=== PATIENT | male | born 2000 | race American Indian/Alaskan Native ===

== ENCOUNTER 2022-12-04 20:07 | Emergency (ER) | payer MEDICAID, SELFPAY ==
--- NOTE | ~2022-12-04 | US_ITS ---
EXAMINATION: US SCROTUM CLINICAL INFORMATION: Scrotal pain. COMPARISON: None available. TECHNIQUE: A sonogram of the scrotum was performed assessing marcano-scale appearance and color Doppler flow. Spectral Doppler analysis of the arterial and venous flow were performed in the testes bilaterally. FINDINGS: RIGHT: Right testicle measures 3.8 x 1.7 x 2.9 cm, volume 9.8 mL. No focal testicular parenchymal lesions are visualized. Spectral Doppler analysis of the arterial and venous flow is normal in the right testis. Right epididymal head is normal in size. No right hydrocele or varicocele is seen. Right epididymal Doppler flow is normal. LEFT: Left testicle measures 3.9 x 1.5 x 2.4 cm, volume 7.4 mL. No focal testicular parenchymal lesions are visualized. Spectral Doppler analysis of the arterial and venous flow is normal in the left testis. Left epididymal head is normal in size. No left hydrocele or varicocele is seen. Left epididymal Doppler flow is normal. US/US scrotum IMPRESSION: Normal ultrasound scrotum.
--- NOTE | ~2022-12-04 | CT_ITS ---
EXAMINATION: CT ABDOMEN AND PELVIS WITHOUT CONTRAST CLINICAL INFORMATION: Right lower quadrant pain COMPARISON: None available. TECHNIQUE: Multidetector volumetric imaging was performed from the superior aspect of the liver through the pubic symphysis. Sagittal and coronal reformatted images were obtained on the technologist's workstation. This CT examination was performed using dose optimization techniques as appropriate, variously including the following: *Automated exposure control *Adjustment of mA and/or kV according to patient size (this includes techniques or standardized protocols for targeted exams where dose is matched to indication/reason for exam; i.e. extremities or head) *Use of iterative reconstruction technique DLP: 334 mGy-cm FINDINGS: LUNG BASES: The visualized lung bases are unremarkable. LIVER, GALLBLADDER, AND BILIARY TREE: The liver is normal in size, shape, and attenuation. No focal hepatic lesion or biliary ductal dilatation is present. The gallbladder is contracted with no evidence of radiopaque gallstones, gallbladder wall thickening, or obvious pericholecystic inflammatory changes. PANCREAS: Unremarkable. SPLEEN: Unremarkable. ADRENAL GLANDS: Unremarkable. KIDNEYS AND URETERS: The kidneys are normal in size, shape, and attenuation. No hydronephrosis, hydroureter, or calculi seen. No perinephric stranding. BLADDER: Unremarkable. GASTROINTESTINAL TRACT: The stomach is unremarkable. Normal caliber small bowel. There is no obstruction. Normal appendix. No colonic wall thickening or inflammatory change. No free air or free fluid. ABDOMINAL WALL: No significant hernia is appreciated. LYMPH NODES: Normal. VASCULAR: Unremarkable. PELVIC VISCERA: The prostate and seminal vesicles are unremarkable. OSSEOUS STRUCTURES: No acute or suspicious osseous abnormality. CT/CT abdomen pelvis wo IV con IMPRESSION: No acute findings of the abdomen or pelvis. No inflammatory changes. Normal appendix. Fleischner guidelines were followed.
--- NOTE | ~2022-12-04 | US_ITS ---
EXAMINATION: US SCROTUM CLINICAL INFORMATION: Scrotal pain. COMPARISON: None available. TECHNIQUE: A sonogram of the scrotum was performed assessing marcano-scale appearance and color Doppler flow. Spectral Doppler analysis of the arterial and venous flow were performed in the testes bilaterally. FINDINGS: RIGHT: Right testicle measures 3.8 x 1.7 x 2.9 cm, volume 9.8 mL. No focal testicular parenchymal lesions are visualized. Spectral Doppler analysis of the arterial and venous flow is normal in the right testis. Right epididymal head is normal in size. No right hydrocele or varicocele is seen. Right epididymal Doppler flow is normal. LEFT: Left testicle measures 3.9 x 1.5 x 2.4 cm, volume 7.4 mL. No focal testicular parenchymal lesions are visualized. Spectral Doppler analysis of the arterial and venous flow is normal in the left testis. Left epididymal head is normal in size. No left hydrocele or varicocele is seen. Left epididymal Doppler flow is normal. US/US scrotum doppler IMPRESSION: Normal ultrasound scrotum.
[2022-12-04 20:44] VITALS: BP 160/76; PULSE 71; RESP 16; TEMP 37.6; O2SAT 100; BMI 21.2
--- NOTE | 2022-12-04 20:48 | ED_ITS ---
HPI - Male Genitourinary General Chief complaint: Urogenital-Male <Michael Vasquez - Last Filed: 12/04/22 20:49> Stated complaint: right scrotal and lower abd pain <Michael Vasquez - Last Filed: 12/04/22 20:49> Time Seen by Provider: 12/04/22 22:38 <Michael Vasquez - Last Filed: 12/04/22 20:49> Source: patient and family (Mother) <Shelby Damon MD - Last Filed: 12/05/22 00:19> Mode of arrival: ambulatory <Shelby Damon MD - Last Filed: 12/05/22 00:19> Limitations: no limitations <Shelby Damon MD - Last Filed: 12/05/22 00:19> History of Present Illness HPI Narrative: 22-year-old male came in for evaluation of right testicular pain for 1 day. Started as right testicular pain radiates to the right groin area for 1 day, pain started as severe 10/10 and was constant, now the pain is better about 2/10, no associated nausea, or vomiting. Denies any heavy lifting, patient is sexually not active for a year has no urethral discharge, no dysuria, no frequency urination. <Shelby Damon MD - Last Filed: 12/05/22 00:19> Related Data Home medications: Previous Rx's Medication Instructions Recorded ciprofloxacin HCl 250 mg tablet 250 mg PO BID #14 tabs 12/04/22 (Cipro) <Michael Vasquez - Last Filed: 12/04/22 20:49> Allergies/Adverse reactions: Allergies Allergy/AdvReac Type Severity Reaction Status Date / Time No Known Allergies Allergy Verified 12/04/22 20:43 <Michael Vasquez - Last Filed: 12/04/22 20:49> Review of Systems Review of Systems: All other systems are reviewed and are negative Constitutional: Reports as per HPI and Reports no additional constitutional complaints Eyes: Reports as per HPI and Reports no additional eye complaints Reports system reviewed and no additional complaints, except as documented Cardiovascular: Reports as per HPI and Reports no additional cardiovascular complaints Respiratory: Reports as per HPI and Reports no additional respiratory complaints Gastrointestinal: Reports as per HPI and Reports no additional gastrointestinal complaints Genitourinary: Reports no additional female genitourinary complaints Musculoskeletal: Reports no additional musculoskeletal complaints Skin/Breast: Reports system reviewed and no additional complaints, except as docu Psychiatric: Reports no additional psychiatric complaints Endocrine: Reports no additional endocrine complaints Hematologic/Lymphatic: Reports no additional hematologic/lymphatic complaints Allergic/Immunologic: Reports no additional allergic/immunologic complaints Reports system reviewed and no additional complaints, except as documented and Reports Abnormal speech present <Shelby Damon MD - Last Filed: 12/05/22 00:19> [facility] Past Medical History Attestation statement: The following information was validated with the patient. <Stefani Lanza NP - Last Filed: 12/04/22 22:59> Source: old records reviewed <Stefani Lanza NP - Last Filed: 12/04/22 22:59> old records reviewed <Shelby Damon MD - Last Filed: 12/05/22 00:19> Social History Social History: Social History Advance Directives: No Advance Directives Information Provided: Yes <Michael Vasquez - Last Filed: 12/04/22 20:49> Physical Exam Vital Signs: Vital Signs: Last Vital Signs Temp 99.7 F 12/04/22 20:44 Pulse 71 12/04/22 20:44 Resp 16 12/04/22 20:44 BP 160/76 H 12/04/22 20:44 Pulse Ox 100 12/04/22 20:44 O2 Del Method Room Air 12/04/22 20:44 BMI result Body Mass Index 21.2 <Michael Vasquez - Last Filed: 12/04/22 20:49> Vital Signs: Last Vital Signs Temp 99.7 F 12/04/22 20:44 Pulse 71 12/04/22 20:44 Resp 16 12/04/22 20:44 BP 160/76 H 12/04/22 20:44 Pulse Ox 100 12/04/22 20:44 O2 Del Method Room Air 12/04/22 20:44 BMI result Body Mass Index 21.2 <Stefani Lanza NP - Last Filed: 12/04/22 22:59> Vital Signs: Last Vital Signs Temp 99.7 F 12/04/22 20:44 Pulse 71 12/04/22 20:44 Resp 16 12/04/22 20:44 BP 160/76 H 12/04/22 20:44 Pulse Ox 100 12/04/22 20:44 O2 Del Method Room Air 12/04/22 20:44 BMI result Body Mass Index 21.2 Vital signs have been reviewed as appeared to be correct. Blood pressure normal. Heart rate normal. Respiration rate normal. Temperature normal. Oxygen saturation normal. <Shelby Damon MD - Last Filed: 12/05/22 00:19> Appearance: Alert. Oriented X3. No acute distress. Head: Normal external exam. Normocephalic. Atraumatic. No Pulliam signs noted. No raccoon eyes noted Eyes: PERRLA. EOMI. Conjunctiva and sclera normal. Eyelids normal. ENT: TM's Normal. Pharynx normal. Uvula midline. Moist mucous membranes. No trismus noted. No drooling noted. No muffled voice noted. Neck: Normal inspection. Neck supple. FROM. No adenopathy. Thyroid Normal. No meningeal signs. No neck mass noted. CVS: Normal heart rate and rhythm. Heart sound normal. No murmurs noted. Pulses normal throughout. Respiratory: No respiratory distress. Painless inspiration. Breath sounds normal. No wheezes/rales/rhonchi noted. Chest nontender. No accessory muscle usage noted or decreased air movement noted. Abdomen: Soft and nontender. Bowel sounds normal in all 4 quadrants. No distention noted. No organomegaly noted. No visible injury noted. exam: No testicular pain, no swelling, no redness in the scrotum, cremasteric reflex is intact, no palpable hernia or mass. Back: No CVA tenderness. Full range of motion noted. Skin: Skin warm and dry. Normal skin color. Normal skin turgor. No rashes/lesions/lacerations noted. Extremities: No lower extremity edema. Extremities exhibit normal range of motion. Extremities nontender. Neuro: Oriented X 3. Cranial nerve exam: II-XII are grossly intact No motor deficit. No sensory deficit. Reflexes normal. <Shelby Damon MD - Last Filed: 12/05/22 00:19> Course Course Course Narrative: RME- 22-year-old male presents for evaluation of right scrotal pain and right lower abdominal pain. Pain started yesterday. Pain is intermittent. Reports history of similar pain about 1 month ago. Denies any burning with urination, blood in the urine. Patient states that he is not sexually active. Plan for testicular ultrasound, labs, UA <Michael Vasquez - Last Filed: 12/04/22 20:49> RME- 22-year-old male presents for evaluation of right scrotal pain and right lower abdominal pain. Pain started yesterday. Pain is intermittent. Reports history of similar pain about 1 month ago. Denies any burning with urination, blood in the urine. Patient states that he is not sexually active. Plan for testicular ultrasound, labs, UA 22:40 <Stefani Lanza NP - Last Filed: 12/04/22 22:59> Reevaluation(s) Reevaluation #1: 22-year-old male with right testicular pain unremarkable ultrasound, has no risk for STD with no symptoms and not sexually active. Will start the patient on Cipro for 7 days treating epididymitis and ibuprofen every 6 hours if needed for pain and follow-up with . <Shelby Damon MD - Last Filed: 12/05/22 00:19> Medical Decision Making Differential Diagnosis Differential Diagnoses: The differential diagnosis associated with the presentation includes (UTI, testicular torsion, epididymitis, hernia, kidney stones, STDs.) <Shelby Damon MD - Last Filed: 12/05/22 00:19> Lab Data MDM Lab Attestation statement: I reviewed the patient's lab results. <Shelby Damon MD - Last Filed: 12/05/22 00:19> Result Diagrams: 12/04/22 20:54 12/04/22 20:54 <Michael Vasquez - Last Filed: 12/04/22 20:49> Labs: Lab Results 12/04/22 12/04/22 12/04/22 Range/Units 20:54 20:54 20:58 WBC 6.5 (4.8-10.8) X10*3/uL RBC 5.14 (4.60-5.80) X10*6/uL Hgb 15.2 (14.0-18.0) g/dl Hct 44.0 (42.0-52.0) % MCV 85.6 (80.0-98.0) fL MCH 29.6 (27.0-33.0) pg MCHC 34.5 (31.0-36.0) g/dl RDW 11.4 (11.0-16.0) % Plt Count 147 L (160-400) X10*3/uL MPV 11.0 (9.4-12.4) fL Immature Gran % (Auto) 0.5 H (0.0-0.4) % Neut % (Auto) 56.1 (45-73) % Lymph % (Auto) 32.6 (20-40) % [place] % (Auto) 9.0 (2-11) % Eos % (Auto) 1.5 (0-4) % Baso % (Auto) 0.3 (0-2) % Lymph # (Auto) 2.1 (1.2-4.9) X10*3/uL [place] # (Auto) 0.6 (0.1-1.2) X10*3/uL Eos # (Auto) 0.1 (0.0-0.4) X10*3/uL Baso # (Auto) 0.0 (0.0-0.2) X10*3/uL Abs Immat Gran (auto) 0.03 (0.00-0.03) X10*3/uL Absolute Neuts (auto) 3.7 (2.0-8.3) x10*3/uL Absolute Nucleated RBC 0.000 (0.0-0.012) X10*3/uL Nucleated RBC % (auto) 0.0 (0.0-0.2) /100WBC Sodium 141 (135-145) mmol/L Potassium 4.1 (3.3-5.1) mmol/L Chloride 105 (96-108) mmol/L Carbon Dioxide 27 (22-29) mmol/L Anion Gap 13 (12-20) BUN 16 (9-16) mg/dL Creatinine 0.87 (0.5-1.4) mg/dL Estim Creat Clear Calc 117.1 Estimated GFR > 60 Random Glucose 97 (60-115) mg/dL Calcium 9.3 (8.4-10.2) mg/dL Urine Color Yellow Urine Appearance Clear Urine pH 5.5 (5.0-9.0) Ur Specific [place] 1.010 (1.005-1.025) Urine Protein Negative (Neg-Trace) mg/dL Urine Glucose (UA) Negative (Negative) mg/dL Urine Ketones Negative (Negative) mg/dL Urine Blood Negative (Negative) Urine Nitrite Negative (Negative) Ur Leukocyte Esterase Negative (Negative) Urine RBC 0-2 (0-2) /HPF Urine WBC 0-5 (0-5) /HPF Ur Squamous Epith Cells 0-2 (0-2) /HPF Urine Bacteria None Seen (None Seen) Hyaline Casts 0-2 (0-2) /LPF <Michael Vasquez - Last Filed: 12/04/22 20:49> Lab Results 12/04/22 12/04/22 12/04/22 Range/Units 20:54 20:54 20:58 WBC 6.5 (4.8-10.8) X10*3/uL RBC 5.14 (4.60-5.80) X10*6/uL Hgb 15.2 (14.0-18.0) g/dl Hct 44.0 (42.0-52.0) % MCV 85.6 (80.0-98.0) fL MCH 29.6 (27.0-33.0) pg MCHC 34.5 (31.0-36.0) g/dl RDW 11.4 (11.0-16.0) % Plt Count 147 L (160-400) X10*3/uL MPV 11.0 (9.4-12.4) fL Immature Gran % (Auto) 0.5 H (0.0-0.4) % Neut % (Auto) 56.1 (45-73) % Lymph % (Auto) 32.6 (20-40) % [place] % (Auto) 9.0 (2-11) % Eos % (Auto) 1.5 (0-4) % Baso % (Auto) 0.3 (0-2) % Lymph # (Auto) 2.1 (1.2-4.9) X10*3/uL [place] # (Auto) 0.6 (0.1-1.2) X10*3/uL Eos # (Auto) 0.1 (0.0-0.4) X10*3/uL Baso # (Auto) 0.0 (0.0-0.2) X10*3/uL Abs Immat Gran (auto) 0.03 (0.00-0.03) X10*3/uL Absolute Neuts (auto) 3.7 (2.0-8.3) x10*3/uL Absolute Nucleated RBC 0.000 (0.0-0.012) X10*3/uL Nucleated RBC % (auto) 0.0 (0.0-0.2) /100WBC Sodium 141 (135-145) mmol/L Potassium 4.1 (3.3-5.1) mmol/L Chloride 105 (96-108) mmol/L Carbon Dioxide 27 (22-29) mmol/L Anion Gap 13 (12-20) BUN 16 (9-16) mg/dL Creatinine 0.87 (0.5-1.4) mg/dL Estim Creat Clear Calc 117.1 Estimated GFR > 60 Random Glucose 97 (60-115) mg/dL Calcium 9.3 (8.4-10.2) mg/dL Urine Color Yellow Urine Appearance Clear Urine pH 5.5 (5.0-9.0) Ur Specific [place] 1.010 (1.005-1.025) Urine Protein Negative (Neg-Trace) mg/dL Urine Glucose (UA) Negative (Negative) mg/dL Urine Ketones Negative (Negative) mg/dL Urine Blood Negative (Negative) Urine Nitrite Negative (Negative) Ur Leukocyte Esterase Negative (Negative) Urine RBC 0-2 (0-2) /HPF Urine WBC 0-5 (0-5) /HPF Ur Squamous Epith Cells 0-2 (0-2) /HPF Urine Bacteria None Seen (None Seen) Hyaline Casts 0-2 (0-2) /LPF <Stefani Lanza, [employer] - Last Filed: 12/04/22 22:59> Lab Results 12/04/22 12/04/22 12/04/22 Range/Units 20:54 20:54 20:58 WBC 6.5 (4.8-10.8) X10*3/uL RBC 5.14 (4.60-5.80) X10*6/uL Hgb 15.2 (14.0-18.0) g/dl Hct 44.0 (42.0-52.0) % MCV 85.6 (80.0-98.0) fL MCH 29.6 (27.0-33.0) pg MCHC 34.5 (31.0-36.0) g/dl RDW 11.4 (11.0-16.0) % Plt Count 147 L (160-400) X10*3/uL MPV 11.0 (9.4-12.4) fL Immature Gran % (Auto) 0.5 H (0.0-0.4) % Neut % (Auto) 56.1 (45-73) % Lymph % (Auto) 32.6 (20-40) % [place] % (Auto) 9.0 (2-11) % Eos % (Auto) 1.5 (0-4) % Baso % (Auto) 0.3 (0-2) % Lymph # (Auto) 2.1 (1.2-4.9) X10*3/uL [place] # (Auto) 0.6 (0.1-1.2) X10*3/uL Eos # (Auto) 0.1 (0.0-0.4) X10*3/uL Baso # (Auto) 0.0 (0.0-0.2) X10*3/uL Abs Immat Gran (auto) 0.03 (0.00-0.03) X10*3/uL Absolute Neuts (auto) 3.7 (2.0-8.3) x10*3/uL Absolute Nucleated RBC 0.000 (0.0-0.012) X10*3/uL Nucleated RBC % (auto) 0.0 (0.0-0.2) /100WBC Sodium 141 (135-145) mmol/L Potassium 4.1 (3.3-5.1) mmol/L Chloride 105 (96-108) mmol/L Carbon Dioxide 27 (22-29) mmol/L Anion Gap 13 (12-20) BUN 16 (9-16) mg/dL Creatinine 0.87 (0.5-1.4) mg/dL Estim Creat Clear Calc 117.1 Estimated GFR > 60 Random Glucose 97 (60-115) mg/dL Calcium 9.3 (8.4-10.2) mg/dL Urine Color Yellow Urine Appearance Clear Urine pH 5.5 (5.0-9.0) Ur Specific [place] 1.010 (1.005-1.025) Urine Protein Negative (Neg-Trace) mg/dL Urine Glucose (UA) Negative (Negative) mg/dL Urine Ketones Negative (Negative) mg/dL Urine Blood Negative (Negative) Urine Nitrite Negative (Negative) Ur Leukocyte Esterase Negative (Negative) Urine RBC 0-2 (0-2) /HPF Urine WBC 0-5 (0-5) /HPF Ur Squamous Epith Cells 0-2 (0-2) /HPF Urine Bacteria None Seen (None Seen) Hyaline Casts 0-2 (0-2) /LPF <Shelby Damon MD - Last Filed: 12/05/22 00:19> Independent Interpretation I performed an independent interpretation of an: Ultrasound (Scrotal ultrasound: No acute pathology.) and CT Scan (No acute intra abdominal pathology. With normal appendix) <Shelby Damon MD - Last Filed: 12/05/22 00:19> Radiology Impression Discussion of test interpretation with radiology: I have reviewed the radiologist's reading. <Shelby Damon MD - Last Filed: 12/05/22 00:19> Discharge Plan Discharge Clinical Impression: Right testicular pain <Michael Vasquez - Last Filed: 12/04/22 20:49> Patient Disposition: Home, Self-Care <Michael Vasquez - Last Filed: 12/04/22 20:49> Instructions: Testicle Pain (ED) <Michael Vasquez - Last Filed: 12/04/22 20:49> Prescriptions: New ciprofloxacin HCl [Cipro] 250 mg tablet 250 mg PO BID Qty: 14 0RF <Michael Vasquez - Last Filed: 12/04/22 20:49> Referrals: Fede Ponce MD [Physician] - <Michael Vasquez - Last Filed: 12/04/22 20:49> Stand Alone Forms: Work/School Release <Michael Vasquez - Last Filed: 12/04/22 20:49>
[2022-12-04 21:03] LABS: MANUAL DIFF FLAG NO
[2022-12-04 21:06] LABS: Basophils Percent Auto 0.3 % (0-2); Eosinophils Absolute Auto 0.1 X10*3/uL (0.0-0.4); Eosinophils Percent Auto 1.5 % (0-4); Hemoglobin 15.2 g/dl (14.0-18.0); Imm Gran Abs Auto 0.03 X10*3/uL (0.00-0.03); Imm Gran Pct Auto 0.5 % (0.0-0.4); Lymphocytes Absolute Auto 2.1 X10*3/uL (1.2-4.9); Lymphocytes Percent Auto 32.6 % (20-40); Mean Corpuscular HGB Conc 34.5 g/dl (31.0-36.0); Mean Corpuscular Hemoglobin 29.6 pg (27.0-33.0); Mean Corpuscular Volume 85.6 fL (80.0-98.0); Monocytes Absolute Auto 0.6 X10*3/uL (0.1-1.2); Neutrophils Absolute Auto 3.7 x10*3/uL (2.0-8.3); Neutrophils Percent Auto 56.1 % (45-73); Platelet Count 147 X10*3/uL (160-400); Red Blood Count 5.14 X10*6/uL (4.60-5.80); Red Cell Distribution Width 11.4 % (11.0-16.0); White Blood Count 6.5 X10*3/uL (4.8-10.8)
[2022-12-04 21:09] LABS: Appearance Urine Clear; Color Urine Yellow; Glucose Urine UA Negative (Negative); Leukocyte Esterase Urine Negative (Negative); Nitrite Urine Negative (Negative); PH 5.5 (5.0-9.0); Urine Blood Negative (Negative); Urine Ketones Negative (Negative); Urine Protein Negative (Neg-Trace)
[2022-12-04 21:11] LABS: Bacteria Urine None Seen (None Seen); Hyaline Casts Urine 0-2 /LPF (0-2); RBC Urine 0-2 /HPF (0-2); Squamous Epithelial Cell Urine 0-2 /HPF (0-2); WBC Urine 0-5 /HPF (0-5)
[2022-12-04 21:20] LABS: Anion Gap 13 (12-20); Blood Urea Nitrogen 16 mg/dL (9-16); Calcium 9.3 mg/dL (8.4-10.2); Carbon Dioxide 27 mmol/L (22-29); Chloride 105 mmol/L (96-108); Creatinine Clr Calc Pharmacy 117.1; Estimated Glomerular Filt Rate > 60; Glucose Random 97 mg/dL (60-115); Potassium 4.1 mmol/L (3.3-5.1); Sodium 141 mmol/L (135-145)
--- NOTE | 2022-12-05 00:58 | PC.NURSE ---
Assessed and discharge by provider, this Rn reviewed discharge instructions with pt. pt verbalized understanding.
== END 2022-12-05 00:59 | disposition home or self-care (01) ==
PROVIDERS: Physician Assistant; Emergency Provider Emergency Medicine
DX: N50.811 Right testicular pain (principal); R10.31 Right lower quadrant pain
CPT/HCPCS: 36415; 74176; 76870; 80048; 81001; 85025; 93975; 99282; 99284

== ENCOUNTER 2023-03-03 15:20 | Emergency (ER) | payer OTHER, MEDICAID, SELFPAY ==
--- NOTE | ~2023-03-03 | XR_ITS ---
EXAMINATION: XR CHEST CLINICAL INFORMATION: Preop COMPARISON: None available. TECHNIQUE: 2 views of the chest were obtained. FINDINGS: No significant abnormality is noted involving the heart, lungs, mediastinum, bony thorax or soft tissues. XR/XR chest 2V IMPRESSION: Unremarkable examination.
[2023-03-03 15:33] VITALS: BP 130/73; PULSE 80; RESP 22; TEMP 36.8; O2SAT 99; BMI 21.4
--- NOTE | 2023-03-03 15:37 | ECG_ITS ---
Test Reason : dyspena Blood Pressure : / mmHG Vent. Rate : 075 BPM Atrial Rate : 075 BPM P-R Int : 134 ms QRS Dur : 084 ms QT Int : 328 ms P-R-T Axes : 074 068 060 degrees QTc Int : 366 ms Normal sinus rhythm Normal ECG No previous ECGs available Referred By: Michael Vasquez Electronically Signed By:MARY JANE JOSE
--- NOTE | 2023-03-03 16:21 | MHC.EDTECH ---
patient ekg done and was read by provider ,blood drawn and sent to lab.
[2023-03-03 16:25] LABS: MANUAL DIFF FLAG NO
[2023-03-03 16:26] LABS: Basophils Percent Auto 0.3 % (0-2); Eosinophils Absolute Auto 0.1 X10*3/uL (0.0-0.4); Eosinophils Percent Auto 1.5 % (0-4); Hemoglobin 14.6 g/dl (14.0-18.0); Imm Gran Abs Auto 0.01 X10*3/uL (0.00-0.03); Imm Gran Pct Auto 0.2 % (0.0-0.4); Lymphocytes Absolute Auto 1.4 X10*3/uL (1.2-4.9); Lymphocytes Percent Auto 21.9 % (20-40); Mean Corpuscular Hemoglobin 29.9 pg (27.0-33.0); Mean Corpuscular Volume 87.9 fL (80.0-98.0); Mean Platelet Volume 11.4 fL (9.4-12.4); Monocytes Absolute Auto 0.7 X10*3/uL (0.1-1.2); Neutrophils Percent Auto 65.1 % (45-73); Platelet Count 148 X10*3/uL (160-400); Red Blood Count 4.89 X10*6/uL (4.60-5.80); Red Cell Distribution Width 11.8 % (11.0-16.0); White Blood Count 6.2 X10*3/uL (4.8-10.8)
[2023-03-03 16:45] LABS: Alanine Aminotransferase 13 U/L (0-40); Albumin Level 4.4 g/dL (3.5-5.0); Alkaline Phosphatase 89 U/L (39-117); Anion Gap 11 (12-20); Aspartate Amino Transferase 25 U/L (5-37); Bilirubin Total 0.5 mg/dL (0.0-1.0); Blood Urea Nitrogen 15 mg/dL (9-16); Calcium 9.5 mg/dL (8.4-10.2); Carbon Dioxide 23 mmol/L (22-29); Chloride 108 mmol/L (96-108); Creatinine Clr Calc Pharmacy 123.4; Estimated Glomerular Filt Rate > 60; Glucose Random 93 mg/dL (60-115); Lipase 11 U/L (8-78); Potassium 4.4 mmol/L (3.3-5.1); Sodium 138 mmol/L (135-145); Total Protein 7.7 g/dL (6.5-8.0)
[2023-03-03 16:49] LABS: Troponin-I High Sensitivity < 2.7 ng/L (<3.5-35.0)
--- NOTE | 2023-03-03 17:26 | ED.SOB ---
HPI - SOB/Dyspnea General Chief Complaint: Dyspnea Stated Complaint: SOB/Body aches Time Seen by Provider: 03/03/23 17:23 Source: patient Mode of arrival: ambulatory Limitations: no limitations History of Present Illness HPI Narrative: 22-year-old male who presents emergency department for evaluation of left-sided chest pain. The patient works as a selector in a warehouse. He states that yesterday evening, approximately 4 hours into a shift, he developed left-sided chest pain. Describes the pain is an intermittent squeezing sensation. He felt lightheaded and dizzy. He states that his tongue felt numb. He states that the pain came on gradually. The pain did radiate to his left arm. He states he has been having intermittent symptoms throughout the day today so he came to the emergency department for evaluation. He states he did feel warm but did not take his temperature, he denied chills. He states that he had a sore throat and a nonproductive cough. He states he had 1 episode of diarrhea. He denies any recent travel. He has not noticed any pain or swelling in his lower extremities. The pain does not radiate to his back. Related Data Previous Rx's Medication Instructions Recorded ciprofloxacin HCl 250 mg tablet 250 mg PO BID #14 tabs 12/04/22 (Cipro) Allergies Allergy/AdvReac Type Severity Reaction Status Date / Time No Known Allergies Allergy Verified 03/03/23 15:36 Review of Systems Review of Systems: Yes all other systems are reviewed and are negative [facility] Past Medical History [facility] Narrative: Social history: He does vape tobacco products. He denies alcohol use. He denies drug use. Social History Social History Alcohol intake: never Smoked in Last 30 Days: Yes Use of substances other than those prescribed or required for medical reasons: No Advance Directives: No Advance Directives Information Provided: No Physical Exam Vital Signs: Vital Signs: Last Vital Signs Temp 99.5 F 03/03/23 17:50 Pulse 70 03/03/23 17:50 Resp 22 H 03/03/23 15:33 BP 119/61 03/03/23 17:50 Pulse Ox 99 03/03/23 17:50 O2 Del Method Room Air 03/03/23 17:50 BMI result Body Mass Index 21.4 Const: General: cooperative and no acute distress Orientation/consciousness: oriented to person and oriented to place Limitations: no limitations HEENT: Head: Yes normal to inspection, Yes normocephalic and Yes atraumatic Ears: external ears normal General nose exam: Normal external nose present Face and sinus: Yes normal facial exam Mouth: Normal oral and palatal mucosa present Throat: Yes posterior oropharynx normal Eyes: General: appearance normal, both eyes and all related structures Pupils: Equal, round and reactive pupils present Neck: Neck: Yes normal visual inspection, Yes no lymphadenopathy, Yes trachea midline and Yes supple Chest: Other: Patient has [id number] left-sided chest wall tenderness Resp: Other: Moderate left chest wall tenderness Effort & Inspection: normal respiratory effort and able to speak in complete sentences Auscultation: clear to auscultation bilaterally Cardio: Rate: regular rate Rhythm: regular rhythm Heart sounds: S1 normal heart sound present, S2 normal heart sound present and no murmurs GI: Inspection: Yes normal to inspection Palpation (GI): Soft to palpation, nontender and no guarding Auscultation: normal bowel sounds : General: Yes no CVA tenderness Back/Spine/Pelvis: Back: no CVA tenderness Skin: General skin exam: no rashes or lesions noted Neuro: General: oriented to person and oriented to place Cranial nerves: Yes CN's II-XII intact bilaterally and Yes Equal, round and reactive pupils present Cognition (Neuro): normal cognition Motor exam (neuro): 5/5 motor strength present throughout Extrem: General: Yes normal to inspection Psych: Appearance: grossly normal Speech and movement: Normal speech and movement present Affect: normal affect Attitude: cooperative Thought process: Normal thought process present Medications Administered Discontinued Medications Generic Name Dose Route Start Last Admin Trade Name Juliusq PRN Reason Stop Dose Admin Ibuprofen 400 mg 03/03/23 17:47 03/03/23 18:06 Ibuprofen 400 Mg Tablet PO 03/03/23 17:48 400 mg ONCE ONE Administration Medical Decision Making Medical Decision Making [facility] Narrative: 22-year-old male who presents emergency department for evaluation of left sided chest pain with left arm pain and associated lightheadedness, dizziness, 1 episode of diarrhea and tongue numbness. The chest pain came on gradually and started approximately 4 hours after the patient was working in a warehouse. Patient has had intermittent episodes since onset. Patient's vital signs were normal. Physical examination did reveal left-sided chest wall tenderness otherwise was unremarkable. The patient's laboratory evaluation was unremarkable 12 EKG was normal. Chest x-ray was unremarkable. Patient's presentation is consistent with musculoskeletal left-sided chest wall pain with hyperventilation syndrome. Patient was advised to take ibuprofen 400 mg 3 times a day for the next 3-4 days. He was given a work note He was given printed and verbal instructions and discharged home Differential Diagnosis Differential Diagnoses: The differential diagnosis associated with the presentation includes Differential diagnosis includes was not limited to myocardial infarction, myocardial ischemia, chest wall pain, Lab Data MDM Lab Attestation statement: I reviewed the patient's lab results. My interpretation of patient's laboratory evaluation is as follows: Normal CBC and CMP. High sensitive troponin I was below detectable limits. 03/03/23 16:18 03/03/23 16:19 Labs: Lab Results 03/03/23 03/03/23 03/03/23 Range/Units 16:18 16:18 16:19 WBC 6.2 (4.8-10.8) X10*3/uL RBC 4.89 (4.60-5.80) X10*6/uL Hgb 14.6 (14.0-18.0) g/dl Hct 43.0 (42.0-52.0) % MCV 87.9 (80.0-98.0) fL MCH 29.9 (27.0-33.0) pg MCHC 34.0 (31.0-36.0) g/dl RDW 11.8 (11.0-16.0) % Plt Count 148 L (160-400) X10*3/uL MPV 11.4 (9.4-12.4) fL Immature Gran % (Auto) 0.2 (0.0-0.4) % Neut % (Auto) 65.1 (45-73) % Lymph % (Auto) 21.9 (20-40) % [place] % (Auto) 11.0 (2-11) % Eos % (Auto) 1.5 (0-4) % Baso % (Auto) 0.3 (0-2) % Lymph # (Auto) 1.4 (1.2-4.9) X10*3/uL [place] # (Auto) 0.7 (0.1-1.2) X10*3/uL Eos # (Auto) 0.1 (0.0-0.4) X10*3/uL Baso # (Auto) 0.0 (0.0-0.2) X10*3/uL Abs Immat Gran (auto) 0.01 (0.00-0.03) X10*3/uL Absolute Neuts (auto) 4.0 (2.0-8.3) x10*3/uL Absolute Nucleated RBC 0.000 (0.0-0.012) X10*3/uL Nucleated RBC % (auto) 0.0 (0.0-0.2) /100WBC Sodium 138 (135-145) mmol/L Potassium 4.4 (3.3-5.1) mmol/L Chloride 108 (96-108) mmol/L Carbon Dioxide 23 (22-29) mmol/L Anion Gap 11 L (12-20) BUN 15 (9-16) mg/dL Creatinine 0.83 (0.5-1.4) mg/dL Estim Creat Clear Calc 123.4 Estimated GFR > 60 Random Glucose 93 (60-115) mg/dL Calcium 9.5 (8.4-10.2) mg/dL Total Bilirubin 0.5 (0.0-1.0) mg/dL AST 25 (5-37) U/L ALT 13 (0-40) U/L Alkaline Phosphatase 89 (39-117) U/L Troponin I High Sens < 2.7 (<3.5-35.0) ng/L Total Protein 7.7 (6.5-8.0) g/dL Albumin 4.4 (3.5-5.0) g/dL Lipase 11 (8-78) U/L Independent Interpretation I performed an independent interpretation of an: EKG and Plain X-Ray Interpretation: My independent interpretation the patient's 12 EKG is as follows: Normal sinus rhythm rate of 75, normal OK interval, QRS duration QTC interval, no ST segment elevation, no ST segment depression, no T-wave abnormalities, no PACs, no PVCs, no previous EKG for comparison, this is a normal EKG. Radiology Impression Discussion of test interpretation with radiology: I have reviewed the radiologist's reading. Radiologist Impression: XR chest 2V IMPRESSION: Unremarkable examination. Dictated By:Genia Mccormack MD Discharge Plan Discharge Clinical Impression: Acute chest wall pain, Hyperventilation syndrome Patient Disposition: Home, Self-Care Instructions: Hyperventilation (ED), Chest Wall Pain (ED) Additional Instructions: Your chest x-ray was unremarkable Your 12 EKG was normal. Your troponin (marker of heart damage) was below detectable limits. Your comprehensive metabolic panel was normal. Your symptoms are consistent with chest wall muscle or joint strain which then triggered hyperventilation syndrome in you which explains your tongue numbness. Take ibuprofen 200 mg pills,2pills every 6 hours as needed for pain. Follow-up with your doctor in 2 days. Please return to the emergency department if your symptoms get worse or if you develop any symptoms that are concerning to you. Please see work note Prescriptions: No Action ciprofloxacin HCl [Cipro] 250 mg tablet 250 mg PO BID Qty: 14 0RF Stand Alone Forms: Work/School Release Interventions: ED Discharge Assessment Last Done: 03/03/23 18:10 Discharge Date/Time: 03/03/23 18:10
[2023-03-03 17:50] VITALS: BP 119/61; PULSE 70; TEMP 37.5; O2SAT 99
[2023-03-03] MEDS: Ibuprofen 400 MG TABLET PO (18:06)
== END 2023-03-03 18:10 | disposition home or self-care (01) ==
PROVIDERS: Physician Assistant; Emergency Provider Emergency Medicine Emergency Medical Services; PCP Internal Medicine
DX: R06.02 Shortness of breath (principal); M79.10 Myalgia, unspecified site; R07.89 Other chest pain; Z79.899 Other long term (current) drug therapy
CPT/HCPCS: 36415; 71046; 80053; 83690; 84484; 85025; 93005; 99283; 99285